=== PATIENT | female | born 1960 | race Caucasian/White ===

== ENCOUNTER → 2017-02-25 | Outpatient (CLI) | payer BC ==
[~2017-02-25] MED LIST: LEVOTHYROXIN0.112 MG PO; PREMPRO 0.3 MG-1 TAB PO; SYNTHROID
== END ==
LOC: MAMMO 08:27
DX: Z12.31 Encounter for screening mammogram for malignant neoplasm of breast (principal); R92.2 Inconclusive mammogram
CPT/HCPCS: G0202

== ENCOUNTER → 2017-03-04 | Outpatient (CLI) | payer BC ==
[2016-11-18 12:52] VITALS: BP 117/72
== END ==
LOC: MAMMO 12:18
DX: Z09 Encounter for follow-up examination after completed treatment for conditions other than malignant neoplasm (principal); N63 Unspecified lump in breast

== ENCOUNTER → 2018-03-17 | Outpatient (CLI) | payer BC ==
[2016-11-18 12:52] VITALS: BP 117/72
== END ==
LOC: MAMMO 08:19
DX: Z12.31 Encounter for screening mammogram for malignant neoplasm of breast (principal)

== ENCOUNTER → 2019-03-09 | Outpatient (CLI) | payer BC ==
[2016-11-18 12:52] VITALS: BP 117/72
== END ==
LOC: MAMMO 08:16
DX: Z12.31 Encounter for screening mammogram for malignant neoplasm of breast (principal)

== ENCOUNTER → 2020-04-18 | Outpatient (CLI) | payer BC ==
[2016-11-18 12:52] VITALS: BP 117/72
== END ==
LOC: MAMMO 08:26
DX: Z12.31 Encounter for screening mammogram for malignant neoplasm of breast (principal)

== ENCOUNTER → 2021-05-28 | Outpatient (CLI) | payer BC | LOC: MAMMO 08:20 | DX: Z12.31 Encounter for screening mammogram for malignant neoplasm of breast (principal) ==

== ENCOUNTER → 2022-06-08 | Outpatient (CLI) | payer BC | LOC: MAMMO 13:48 | DX: Z12.31 Encounter for screening mammogram for malignant neoplasm of breast (principal) ==

== ENCOUNTER → 2024-08-24 | Outpatient (CLI) | payer BC | LOC: MAMMO 08:51 | DX: Z12.31 Encounter for screening mammogram for malignant neoplasm of breast (principal) ==